=== PATIENT | female | born 2000 ===

== ENCOUNTER 2020-12-01 08:10 | Inpatient (IN) | payer MEDICAID ==
[2020-12-01] MEDS ORDERED: Acetaminophen 325 MG Tab PO PRN ×2 (09:44→19:07)
[2020-12-01] MEDS ORDERED: Lidocaine 1% 30 ML SDV INJECT PRN (09:44)
[2020-12-01] MEDS ORDERED: Sodium Chloride 0.9% 10 ML Syringe FLUSH PRN ×2 (09:44→19:07)
[2020-12-01] MEDS ORDERED: Methylergonovine 0.2 MG/1 ML Amp IM PRN (09:44)
[2020-12-01] MEDS ORDERED: Ondansetron 4 MG/2 ML SDV IVPUSH PRN (09:44)
[2020-12-01] MEDS ORDERED: Carboprost Tromethamine 250 MCG/1 ML Amp IM PRN ×2 (09:44→19:07)
[2020-12-01] MEDS ORDERED: Tranexamic Acid 1,000 MG in Sodium Chloride 0.9% 100 ML IV PRN ×2 (09:44→19:07)
[2020-12-01] MEDS ORDERED: Lactated Ringers 1,000 ML IV ONE (09:44)
[2020-12-01] MEDS ORDERED: Misoprostol 400 MCG (4 X 100 MCG TAB) RECTAL PRN ×2 (09:44→19:07)
[2020-12-01] MEDS ORDERED: Lactated Ringers 1,000 ML IV SCH (09:45)
[2020-12-01] MEDS ORDERED: Oxytocin/Normal Saline 30 UNIT/500 ML BAG IV SCH (09:45)
--- NOTE | 2020-12-01 10:48 | HP ---
CHIEF COMPLAINT: "I'm here to have my baby." HISTORY OF PRESENT ILLNESS: Ms. Bailey is a 20-year-old, 3, para 2-0-0- 2, female, last menstrual period 03/31/2020, EDC 11/29/2020, EGA 40 and 2/7 weeks' gestation by a 29 and 5/7 weeks' ultrasound done on 09/18/2020. She has had limited care in [place], and desires to have an induction of labor. She denies any nausea, vomiting, or diarrhea. No fever or chills. No hematochezia, hematemesis, hematuria. No dysuria, frequency, or urgency with urination. No leg pain, leg edema, back pain, headaches, blurred vision, epigastric pain, scotomata. She has no shortness of breath or chest pain. She has not had any issues throughout the . PAST MEDICAL HISTORY: No anemia, asthma, cancer, diabetes, seizure disorder, hypertension, heart disease, seizure disorder, thyroid disorder, thromboembolic disease, breast lesions, history of blood transfusions, she does have history of ADHD. FAMILY HISTORY: Positive for hypertension, but no diabetes, lung problems, kidney problems, cancer, or thromboembolic disease. SOCIAL HISTORY: She denies any tobacco use, alcohol use, or illicit drug use at this time. She was positive for marijuana, 08/2020, but a recent drug screen on 11/28/2020 was negative. She lives in [place]. She has a significant other who is involved. OBSTETRICAL HISTORY: 12/26/2014, delivery of a viable female infant via normal spontaneous vaginal delivery at 39 and 2/7 weeks' gestation weighing 7 pounds 8 ounces. 10/2017, delivery of a viable female via normal spontaneous vaginal delivery at 40 weeks' gestation weighing 7 pounds 12 ounces. SURGICAL HISTORY: None. ALLERGIES: Penicillin and amoxicillin. REVIEW OF SYSTEMS: All pertinent positive and negative review of systems per HPI. All other systems reviewed are negative. A 10-point review of systems discussed with the patient. She has no other issues. LABORATORY DATA: Blood type O positive. Antibody screen negative. Hepatitis B surface antigen negative. Hepatitis C antibody negative. Rubella immune. RPR nonreactive. Group B strep vaginal culture negative. COVID-19 test negative. OBJECTIVE: General: Well-developed, well-nourished female in no acute distress. Vital Signs: Stable. Afebrile. HEENT: Unremarkable. Neck: Supple without adenopathy. No thyromegaly. Lungs: Clear to auscultation. No wheezing, rhonchi, or rales noted. Cardiovascular: Regular rate and rhythm without murmurs. Abdomen: Gravid, nontender. Fundal height 39 cm. Vertex presentation. heart tones in the 130s to 140s. Category 1 reactive strip. Genitourinary: Cervix was 4 cm dilated, 70% effaced, 0 station, mid posterior, and soft. Bulging bag of galeana ruptured with Amnio Hook, clear fluid. Extremities: No edema, erythema, or tenderness noted. Neurological: Sensory and motor intact. ASSESSMENT: 1. A 40 and 2/7 weeks' intrauterine by a 29 and 5/7 weeks' ultrasound. 2. Limited care. 3. Positive marijuana in urine drug screen in August, negative 3 days ago. PLAN: 1. The patient desires Pitocin induction of labor. 2. Risks, benefits, complications, and side effects of Pitocin were discussed with the patient including tachy systole, increased risk of section, and distress. 3. All questions answered. 4. Pitocin IV will start at 2 milliunits/minute and increase by 2 milliunits/minute every 20 to 30 minutes. 5. Discussed pain control including nothing, IV medications, intrathecal along with nitrous oxide. [facility] /[id number]
[2020-12-01] MEDS ORDERED: Nalbuphine 10 MG/1 ML Vial IM STA (12:12)
[2020-12-01] MEDS ORDERED: Butorphanol 2 MG/ML SDV IVPUSH ONE (14:22)
[2020-12-01] MEDS ORDERED: Oxytocin 10 Units/1 ML SDV IM PRN (19:07)
[2020-12-01] MEDS ORDERED: Bisacodyl 10 MG Supp RECTAL PRN (19:07)
[2020-12-01] MEDS ORDERED: Zolpidem 5 MG Tab PO PRN (19:07)
[2020-12-01] MEDS ORDERED: Methylergonovine 0.2 MG Tab PO PRN (19:07)
[2020-12-01] MEDS ORDERED: Diphtheria,Pertussis(Acell),Tetanus Vaccine 0.5 ML SDV IM ONE (19:07)
[2020-12-01] MEDS ORDERED: Docusate Sodium 100 MG Cap PO PRN (19:07)
[2020-12-01] MEDS ORDERED: Benzocaine/Menthol 20%-0.5% Spray 56 GM Canister TOP PRN (19:07)
[2020-12-01] MEDS ORDERED: Simethicone 80 MG Tab.Chew PO PRN (19:07)
[2020-12-01] MEDS ORDERED: Nicotine 7 MG/24 Hr Patch TRDERM SCH (20:00)
[2020-12-01] MEDS: Ibuprofen 800 MG Tab PO PRN (20:23)
[2020-12-02] MEDS: Ferrous Sulfate 325 MG Tab PO SCH ×2 (08:03→11:42)
[2020-12-02] MEDS: Ibuprofen 800 MG Tab PO PRN (08:03)
[2020-12-02] MEDS ORDERED: Prenatal Multivitamin with Calcium/Folic Acid/Iron Tab PO SCH (09:00)
[2020-12-02] MEDS ORDERED: FLU Vacc QS2020-21 36MOS UP/PF 60 MCG/0.5 ML Syringe IM ONE (12:00)
--- NOTE | 2020-12-02 12:14 | PN ---
DATE: 12/02/2020 Carroll is doing very well today. She denies any nausea, vomiting, or diarrhea. No fever or chills. She had a normal spontaneous vaginal delivery of a viable female yesterday over an intact perineum. She is tolerating her diet well and ambulating quite well. She is able to urinate and take care of her day- to-day activities on her own. She is doing wonderfully. She denies any heavy bleeding or severe abdominal or back pain. OBJECTIVE: General: A well-developed, well-nourished female, in no acute distress. Vital signs: Stable, afebrile. HEENT: Unremarkable. Neck: Supple without adenopathy. No thyromegaly. Lungs: Clear to auscultation. No wheezing, rhonchi, or rales noted. Cardiovascular: Regular rate and rhythm without murmurs. Abdomen: Soft, nontender. Fundal height just below the umbilicus and firm. Minimal lochia is noted. Extremities: No edema, erythema, or tenderness noted. ASSESSMENT: 1. day #1 status post normal spontaneous vaginal delivery of a viable female infant. 2. Doing well. PLAN: 1. Continue present care. 2. Patient deciding whether or not she wants to be discharged later today or tomorrow. 3. All questions answered. 4. Continue increasing fluid intake and ambulation. [facility] /[id number]
--- NOTE | 2020-12-03 10:39 | DEL ---
DATE: 12/01/2020 PROCEDURE: Vaginal delivery. DETAILS OF PROCEDURE: Ms. Bailey is a 20-year-old, 3, para 2-0-0-2 female at 40-2/7 weeks gestation who reported to Labor and Delivery for induction of labor at [facility] in [place]. On admission, she was noted to be 4 cm, dilated, 70% effaced, and -2 station. There was a nice reactive strip, category 1 with no issues, so artificial rupture membranes occurred with clear fluid noted, and Pitocin was started IV at 2 milliunits/minute and increased by 2 milliunits/minute every 20 to 30 minutes. The patient tolerated her labor quite well. There were no complications. She did have Nubain IM, Stadol IV, and also Nitrox to help with her labor discomfort. Once she got to complete, she started pushing. She then had a normal spontaneous vaginal delivery, OA, of a viable female infant over an intact perineum. The cord was 3-vessel, not around the neck. The cord was clamped and cut. The was handed to the patient on her chest. She did quite well. Cord blood was obtained. The placenta was then delivered by simple expression intact. The labia, vagina, and cervix were inspected and intact. Mother and did quite well. The baby weighed 7 pounds 10 ounces, 20-1/2 inches long with scores of 8 at one minute, 9 at five minutes. She was born at 1534. The patient recovered for 2 hours, was able to ambulate, and eat a regular diet. [facility] /[id number]
--- NOTE | 2020-12-03 10:48 | DISCH ---
INDICATION FOR ADMISSION: Ms. Bailey is a 20-year-old 3, para 2-0-0-2 female at 40-2/7 weeks gestation who reported to [facility] in [place] for induction of labor. On admission, she was noted to be 4 cm dilated, 70% effaced, -2 station. Pitocin IV was started for induction. She tolerated her labor quite well. Once she got uncomfortable, she started asking for pain medications including Nubain IM, Stadol IV, and Nitrox. Once she got to complete, she started pushing. She had a normal spontaneous vaginal delivery of a viable female infant, weighing 7 pounds 10 ounces, 20-1/2 inches long with scores of 8 at one minute, 9 at five minutes over an intact perineum. The cord was 3 vessel, not around the neck. The placenta was then delivered by simple expression intact. The labia, vagina and cervix were inspected and intact. The patient recovered quite nicely. The infant did quite well. No complications occurred throughout her hospital stay. She was afebrile. Vital signs are stable. She tolerated her diet well and ambulated quite well. She was discharged to home on day #1. LABORATORY AND DIAGNOSTIC STUDIES: 12/01/2020, blood type O positive, hemoglobin 8.9, platelet count 399,000. COVID-19 test negative. 12/02/2020, hemoglobin 9.2, platelet count 422,000. DISCHARGE INSTRUCTIONS: 1. Discharged home. 2. Follow up with Dr. Phillips in 6 weeks or sooner if problems develop. 3. No douching, tampons, or intercourse for 6 weeks. 4. Ibuprofen 800 mg one tablet t.i.d. p.r.n. for pain. 5. Tylenol p.r.n. for pain. 6. Discharge instructions including activity, followup, medications, diet and wound care were discussed with the patient. She understands these and is willing to comply with these. DISCHARGE DIAGNOSES: 1. 40-2/7 week intrauterine . 2. Marijuana use in . 3. Pitocin induction of labor. 4. Artificial rupture of membranes. 5. Normal spontaneous vaginal delivery of a viable female infant, weighing 7 pounds 10 ounces, 20-1/2 inches long with scores of 8 at one minute, 9 at five minutes. 6. Chronic anemia of . [facility] /[id number]
== END 2020-12-02 16:20 | disposition home or self-care (01) | DRG 807 ==
LOC: DL.OBCHECK 08:10 → DL.OB 09:43 → OBSVTOIN 15:34
PROVIDERS: ADMIT Obstetrics & Gynecology; ATTEND Obstetrics & Gynecology
PROC: 10E0XZZ Delivery of Products of Conception, External Approach (ICD-10-PCS; principal; 2020-12-01)
PROC: 10907ZC Drainage of Amniotic Fluid, Therapeutic from Products of Conception, Via Natural or Artificial Opening (ICD-10-PCS; 2020-12-01)
PROC: 3E033VJ Introduction of Other Hormone into Peripheral Vein, Percutaneous Approach (ICD-10-PCS; 2020-12-01)
PROC: 3E02340 Introduction of Influenza Vaccine into Muscle, Percutaneous Approach (ICD-10-PCS; 2020-12-02)
DX: O99.02 Anemia complicating childbirth (principal); Z37.0 Single live birth; Z3A.40 40 weeks gestation of pregnancy; D64.9 Anemia, unspecified; Z20.822 Contact with and (suspected) exposure to COVID-19; Z88.0 Allergy status to penicillin; Z23 Encounter for immunization
CPT/HCPCS: 36415; 59409; 85027; 86592; 86850; 86900; 86901; 90686; 90715; A9270-GY; J0595; J2300; J2590; J7120; U0002